=== PATIENT | female | born 1980 | race Caucasian/White ===

== ENCOUNTER 2022-08-31 16:57 | Emergency (ER) | payer OTHER, SELFPAY ==
[2022-08-31 17:11] VITALS: BP 145/87; PULSE 111; RESP 16; TEMP 36.8; O2SAT 97
--- NOTE | 2022-08-31 17:45 | ED.URI ---
HPI - URI/Sore Throat General Chief Complaint: Upper Respiratory Infection Stated Complaint: sore throat, ear pain, cough, chest pain Time Seen by Provider: 08/31/22 17:45 Source: patient, RN notes reviewed and old records reviewed Mode of arrival: ambulatory Limitations: no limitations History of Present Illness HPI Narrative: 42-year-old female who presents to [facility] with complaints of headache frontal, ears itchy,head congestion,sore throat, productive green cough, some shortness of breath with cough,fatigue, with no known fevers for the past week with increase cough for past 3 days.. Patient reports that she has been taking NyQuil cold and flu OTC, and Ibuprofen for her headache pain. Patient has had COVID vaccinations but has not had flu shot. MD elicited complaint: cough, sore throat and other (ear pain) Onset (ago): week(s) (1 with increase cough past 3 days) Pain scale (0-10): 6 Associated symptoms: headache, sore throat, cough, ear pain and other (fatigue) Treatments prior to arrival: ibuprofen and other (NyQuil cold and flu) Related Data Home Medications Medication Instructions Recorded Confirmed buspirone 15 mg tablet 15 mg PO BID 08/31/22 08/31/22 escitalopram oxalate 20 mg tablet 20 mg PO DAILY 08/31/22 08/31/22 hydroxyzine HCl 25 mg tablet 25 mg PO TID PRN Anxiety 08/31/22 08/31/22 norethindrone (contraceptive) 0.35 0.35 mg PO DAILY 08/31/22 08/31/22 mg tablet ([facility]ia) Allergies Allergy/AdvReac Type Severity Reaction Status Date / Time No Known Allergies Allergy Unverified 08/31/22 17:20 Review of Systems Review of Systems: CONSTITUTIONAL: Denies malaise, chills, sweats, or fever. EYES: Denies visual changes, redness, or discharge. ENT: Reports rhinorrhea, congestion, sinus pain, otalgia and sore throat. CARDIOVASCULAR: Denies chest pain, palpitations, or edema. RESPIRATORY: Reports cough.?Some dyspnea.stated with cough GASTROINTESTINAL: Denies abdominal pain, nausea, vomiting, diarrhea SKIN: Denies rash or itching. MUSCULOSKELETAL: Denies myalgia. NEUROLOGIC: positive headache. All systems reviewed & are unremarkable except as noted in HPI and below PMFSH Past Medical History Medical History (Updated 09/05/22 @ 11:50 by Radha Morales NP) Anxiety Surgical History Surgical History (Updated 09/05/22 @ 11:52 by Radha Morales NP) Previous section Social History Social History (Updated 09/05/22 @ 11:51 by Radha Morales NP) Smoking status: Current every day smoker Tobacco type: cigarettes Alcohol intake: current Alcohol use details: social Substance use type: does not use Living arrangements: with family Gender identity (if verbalized by the patient): Female Comments At time of signature, agree with nursing past medical, surgical, social and family history. There is no relevant family history pertinent to the presenting complaint Exam Narrative: GENERAL: Well-appearing, well-nourished, and in no acute distress. HEAD: Normocephalic EYES: PERRLA, conjunctivae clear ENT: Nares clear, turbinates edematous and erythematous, clear discharge. Mucous membranes moist. TM pearly humphries with dull light reflex bilaterally; no tragal tenderness. Oropharynx erythematous without lesions. Tonsils not enlarged and without exudate, no drooling, no hoarseness, no trismus, uvula midline.post nasal drainage noted NECK: Supple. No lymphadenopathy CHEST: coarse breath sounds equal. scattered wheezing,no rhonchi, rales, or stridor. No respiratory distress, speaks in full sentences.SAO2 97% on room air, productive cough HEART: Regular rate and rhythm. No murmur heard. SKIN: Warm, dry, no rash. NEURO: Alert and oriented x3. PSYCH: Normal mood and affect Course Course Emergency Course: Patient is aware of diagnosis, understands and agrees to treatment plan.? Anticipatory guidance given.? Patient agrees to follow-up as directed and is a
--- NOTE | 2022-08-31 18:54 | ED.URI ---
HPI - URI/Sore Throat General Chief Complaint: Upper Respiratory Infection Stated Complaint: sore throat, ear pain, cough, chest pain Source: patient, RN notes reviewed and old records reviewed Mode of arrival: ambulatory Limitations: no limitations History of Present Illness MD elicited complaint: cough and sore throat Related Data Home Medications Medication Instructions Recorded Confirmed buspirone 15 mg tablet 15 mg PO BID 08/31/22 08/31/22 escitalopram oxalate 20 mg tablet 20 mg PO DAILY 08/31/22 08/31/22 hydroxyzine HCl 25 mg tablet 25 mg PO TID PRN Anxiety 08/31/22 08/31/22 norethindrone (contraceptive) 0.35 0.35 mg PO DAILY 08/31/22 08/31/22 mg tablet (Incassia) Allergies Allergy/AdvReac Type Severity Reaction Status Date / Time No Known Allergies Allergy Unverified 08/31/22 17:20 Review of Systems Review of Systems: CONSTITUTIONAL: Denies malaise, chills, sweats, or fever. EYES: Denies visual changes, redness, or discharge. ENT: Reports rhinorrhea, congestion, sinus pain, otalgia and sore throat. CARDIOVASCULAR: Denies chest pain, palpitations, or edema. RESPIRATORY: Reports cough.? Denies dyspnea. GASTROINTESTINAL: Denies abdominal pain, nausea, vomiting, diarrhea SKIN: Denies rash or itching. MUSCULOSKELETAL: Denies myalgia. NEUROLOGIC: Denies headache. All systems reviewed & are unremarkable except as noted in HPI and below PMFSH Comments At time of signature, agree with nursing past medical, surgical, social and family history. There is no relevant family history pertinent to the presenting complaint Exam Narrative: GENERAL: Well-appearing, well-nourished, and in no acute distress. HEAD: Normocephalic EYES: PERRLA, conjunctivae clear ENT: Nares clear, turbinates edematous and erythematous, clear discharge. Mucous membranes moist. TM pearly humphries with dull light reflex bilaterally; no tragal tenderness. Oropharynx erythematous without lesions. Tonsils not enlarged and without exudate, no drooling, no hoarseness, no trismus, uvula midline. NECK: Supple. No lymphadenopathy CHEST: Clear to auscultation, breath sounds equal. No wheezing, rhonchi, rales, or stridor. No respiratory distress, speaks in full sentences. HEART: Regular rate and rhythm. No murmur heard. SKIN: Warm, dry, no rash. NEURO: Alert and oriented x3. PSYCH: Normal mood and affect Course Course Emergency Course: Patient is aware of diagnosis, understands and agrees to treatment plan.? Anticipatory guidance given.? Patient agrees to follow-up as directed and is aware of reasons to seek care at the emergency department. Portions of this record may have been created with voice recognition software Level of Care: Express Care Visit Vital Signs Vital signs: Vital Signs Temperature 36.8 C 08/31/22 17:11 Pulse Rate 111 H 08/31/22 17:11 Respiratory Rate 16 08/31/22 17:11 Blood Pressure 145/87 H 08/31/22 17:11 Pulse Oximetry 97 08/31/22 17:11 Temperature 36.8 C 08/31/22 17:11 Pulse Rate 111 H 08/31/22 17:11 Respiratory Rate 16 08/31/22 17:11 Blood Pressure 145/87 H 08/31/22 17:11 Pulse Oximetry 97 08/31/22 17:11 Reviewed MDM - URI/Sore Throat MDM Narrative Medical decision making narrative: Differential diagnosis considered: Freeman virus, strep pharyngitis, allergic rhinitis, upper respiratory tract infection, sinusitis, rhinosinusitis, nasopharyngitis. viral pharyngitis, otitis media, otitis externa, pneumonia, bronchitis, viral cough syndrome, viral syndrome, and influenza.? Exam findings show no acute concerns or changes; patient is non-toxic appearing and is in no distress.? Patient is appropriate for outpatient treatment and follow-up. Lab Data Attestation: I reviewed the patient's lab results. Labs: Influenza A Screen Negative Reference Range: Negative Influenza B Screen Negative
== END 2022-08-31 19:02 | disposition home or self-care (01) ==
PROVIDERS: Emergency Provider Registered Nurse
DX: J06.9 Acute upper respiratory infection, unspecified (principal); R05.1 Acute cough; F41.9 Anxiety disorder, unspecified
CPT/HCPCS: 87804; 99203; G0463

== ENCOUNTER 2023-01-27 11:13 | Emergency (ER) | payer OTHER, SELFPAY ==
[2023-01-27 11:25] VITALS: BP 120/71; PULSE 94; RESP 16; TEMP 37; O2SAT 99
--- NOTE | 2023-01-27 12:06 | ED.URI ---
HPI - URI/Sore Throat General Chief Complaint: Upper Respiratory Infection Stated Complaint: sore throat Time Seen by Provider: 01/27/23 12:00 Source: patient, RN notes reviewed and old records reviewed Mode of arrival: ambulatory Limitations: no limitations History of Present Illness HPI Narrative: 43 year old female who presents to [facility] with complaints of sore throat, headache, itchy ears,increase pain with swallowing for the past several day with increased throat symptoms since last night. Patient reports that she has noted blister type lesion on her right tonsil and it feels like her right gland is swollen.Patient reports that her kids have had strep throat recently. MD elicited complaint: sore throat Onset (ago): day(s) (3) Pain scale (0-10): 5 Able to tolerate fluids by mouth: Yes Exacerbating factors: swallowing Treatments [facility] to [facility]: [facility] Related Data Home Medications Medication Instructions Recorded Confirmed buspirone 15 mg tablet 15 mg PO BID 08/31/22 01/27/23 escitalopram oxalate 20 mg tablet 20 mg PO DAILY 08/31/22 01/27/23 norethindrone (contraceptive) 0.35 0.35 mg PO DAILY 08/31/22 01/27/23 mg tablet (Incassia) Allergies Allergy/AdvReac Type Severity Reaction Status Date / Time No Known Allergies Allergy Unverified 01/27/23 11:33 Review of Systems Review of Systems: CONSTITUTIONAL: Denies malaise, chills, sweats, or fever.reports fatigue EYES: Denies visual changes, redness, or discharge. ENT: Reports rhinorrhea, congestion, sinus pain, itchy type of otalgia and sore throat. CARDIOVASCULAR: Denies chest pain, palpitations, or edema. RESPIRATORY: Reports cough.? Denies dyspnea. GASTROINTESTINAL: Denies abdominal pain, nausea, vomiting, diarrhea SKIN: Denies rash or itching. MUSCULOSKELETAL: Denies myalgia. NEUROLOGIC: Denies headache. All systems reviewed & are unremarkable except as noted in HPI and below PMFSH Past Medical History Medical History (Updated 01/28/23 @ 00:03 by Humza Myers) Anxiety Surgical History Surgical History (Updated 01/29/23 @ 08:59 by Radha Morales NP) H/O breast surgery Previous section Social History Social History (Updated 09/05/22 @ 11:51 by Radha Morales NP) Smoking status: Current every day smoker Tobacco type: cigarettes Alcohol intake: current Alcohol use details: social Substance use type: does not use Living arrangements: with family Gender identity (if verbalized by the patient): Female Comments At time of signature, agree with nursing past medical, surgical, social and family history. There is no relevant family history pertinent to the presenting complaint Exam Narrative: GENERAL: Well-appearing, well-nourished, and in no acute distress. HEAD: Normocephalic EYES: PERRLA, conjunctivae clear ENT: Nares clear, turbinates edematous and erythematous, clear discharge. Mucous membranes moist. TM pearly humphries with dull light reflex bilaterally; no tragal tenderness. Oropharynx erythematous without lesions. Tonsils red, mildly enlarged and with white exudate on right tonsil, no drooling, no hoarseness, no trismus, uvula midline some post nasal drainage. NECK: Supple. No lymphadenopathy CHEST: Clear to auscultation, breath sounds equal. No wheezing, rhonchi, rales, or stridor. No respiratory distress, speaks in full sentences.SAO2 99% on room air HEART: Regular rate and rhythm. No murmur heard. SKIN: Warm, dry, no rash. NEURO: Alert and oriented x3. PSYCH: Normal mood and affect Course Course Emergency Course: Patient is aware of diagnosis, understands and agrees to treatment plan.? Anticipatory guidance given.? Patient agrees to follow-up as directed and is aware of reasons to seek care at the emergency department. Portions of this record may have been created with voice recognition software Level of Care: Express Care Visit Vital Signs Vital signs:
== END 2023-01-27 12:26 | disposition home or self-care (01) ==
PROVIDERS: Emergency Provider Registered Nurse
DX: J03.90 Acute tonsillitis, unspecified (principal); F17.210 Nicotine dependence, cigarettes, uncomplicated; F41.9 Anxiety disorder, unspecified
CPT/HCPCS: 87081; 87880; 99213; G0463

== ENCOUNTER 2023-07-23 08:55 | Emergency (ER) | payer OTHER, SELFPAY ==
[2023-07-23 09:05] VITALS: BP 146/87; PULSE 90; RESP 16; TEMP 36.4; O2SAT 100
--- NOTE | 2023-07-23 09:18 | ED.EAR ---
HPI - Ear Problem General Chief complaint: Ear Stated complaint: Ear ache Time Seen by Provider: 07/23/23 08:56 Source: patient Mode of arrival: ambulatory Limitations: no limitations History of Present Illness HPI Narrative: Nora is a 43-year-old female patient presenting to the clinic today with complaints of bilateral ear pain. She reports that she has had right ear pain for approximately 1 week. Has seen a provider in urgent care was given prescription for Cortisporin ear drops. She reports that it does not seem as these drops are helping her. Does continue to have pain in the right ear with radiation of pain into the jaw. Also reporting 2 day history of left ear pain as well. Related Data Home Medications Medication Instructions Recorded Confirmed buspirone 15 mg tablet 15 mg PO BID 08/31/22 07/23/23 escitalopram oxalate 20 mg tablet 20 mg PO DAILY 08/31/22 07/23/23 hydroxyzine HCl 25 mg tablet 25 mg PO PRN 07/23/23 07/23/23 [id number] 3.5 3 drp EACH EAR QID 07/23/23 07/23/23 mg-10,000 unit/mL-1 % ear drops,susp riboflavin (vitamin B2) 400 mg 400 mg PO DAILY 07/23/23 07/23/23 tablet Allergies Allergy/AdvReac Type Severity Reaction Status Date / Time amoxicillin [From Amoxil] Allergy Rash Verified 07/23/23 09:07 Review of Systems Review of Systems: Pertinent positives per HPI. Patient denies any fever, chills, rash, headache, visual changes, dizziness, cough, runny nose, sore throat, shortness of breath, chest pain, palpitations, nausea, vomiting, diarrhea, constipation, abdominal pain, or any urinary issues. [facility] Past Medical History Medical History Anxiety Surgical History Surgical History H/O breast surgery Previous section Social History Social History Smoking status: Current every day smoker Tobacco type: cigarettes Alcohol intake: current Alcohol use details: social Substance use type: does not use Living arrangements: with family Gender identity (if verbalized by the patient): Female Comments At the time of my signature, I reviewed and agree with the nursing past medical, surgical, social, and family history. There is no relevant family history pertinent to the patient complaint. Exam Narrative: General: Well-developed, well nourished, in no apparent distress Head: Normocephalic, atraumatic Eyes: Pupils equally round and reactive to light bilaterally, EOM intact, sclera and conjunctive clear, no discharge, lids normal Ears: Left tMs intact, bulging, with fluid noted behind the TM, right TM intact, bulging, red, left ear canal normal, right ear canal swollen with white otorrhea, pain to pulling of the pinna pushing on the tragus to the right ear, grossly hearing normal. Nose: Nares patent, clear discharge, no inflammation, no sinus tenderness. Mouth: Oropharynx without lesions or masses, good dentition, MMM. Neck: Supple, trachea midline, no enlargement of anterior or posterior cervical nodes, no thyroid masses or goiter palpable. Cardio: Regular rate and rhythm, s1 and s2 normal, no murmur appreciated. Resp: Clear to auscultation bilaterally anteriorly and posteriorly, no rhonchi, rales, wheezing or rubs Course Course Emergency Course: Portions of this record may have been created with voice recognition software. Level of Care: Express Care Visit Vital Signs Vital signs: Vital Signs Temperature 36.4 C 07/23/23 09:05 Pulse Rate 90 07/23/23 09:05 Respiratory Rate 16 07/23/23 09:05 Blood Pressure 146/87 H 07/23/23 09:05 Pulse Oximetry 100 07/23/23 09:05 Temperature 36.4 C 07/23/23 09:05 Pulse Rate 90 07/23/23 09:05 Respiratory Rate 16 07/23/23 09:05 Blood Pressure 146/87 H 07/23/23 09:05 Pulse Oximetry 100
== END 2023-07-23 09:30 | disposition home or self-care (01) ==
PROVIDERS: Emergency Provider Nurse Practitioner Family
DX: H60.311 Diffuse otitis externa, right ear (principal); H65.02 Acute serous otitis media, left ear; Z79.899 Other long term (current) drug therapy; F17.210 Nicotine dependence, cigarettes, uncomplicated
CPT/HCPCS: 99213; G0463